=== PATIENT | female | born 1945 ===

== ENCOUNTER 2017-05-22 09:04 | Day surgery (SDC) | payer MEDICARE, MEDICAID ==
[2017-05-17 11:44] VITALS: BMI 28.0
[2017-05-22 09:45] LABS: BASO # 0.03 K/mm3 (0.0-2.0); BASO % 0.4 % (0.0-3.0); EOS # 0.1 (0.0-0.7); EOS % 0.7 % (1.5-5.0); GRAN # 4.88 (1.4-6.5); GRAN % 72.7 % (50.0-68.0); HEMATOCRIT 38.5 % (36.0-48.0); LYMPH # 1.3 (1.2-3.4); LYMPH % 19.9 % (22.0-35.0); MEAN CELL VOLUME 87.1 fl (80.0-105.0); MEAN CORPUSCULAR HEMOGLOBIN 28.5 pg (25.0-35.0); MEAN CORPUSCULAR HGB CONC 32.7 g/dl (31.0-37.0); MEAN PLATELET VOLUME 10.7 fl (7.0-11.0); MONO # 0.4 (0.1-0.6); MONO % 6.3 % (1.0-6.0); RED CELL DISTRIBUTION WIDTH 14.1 % (11.5-14.5); WHITE BLOOD COUNT 6.7 10^3/ul (4.5-11.0)
[2017-05-22 09:54] LABS: BLOOD UREA NITROGEN 15 mg/dL (7-21); CALCIUM 9.2 mg/dL (8.4-10.5); CARBON DIOXIDE 28 mmol/L (21-33); CHLORIDE 100 mmol/L (98-107); GFR AFRICAN-AMERICAN > 60; GLUCOSE,RANDOM 141 mg/dL (70-110); POTASSIUM 3.8 mmol/L (3.6-5.0); SODIUM 139 mmol/L (132-148)
[2017-05-22 09:59] LABS: INR 0.94 (0.93-1.08); PARTIAL THROMBOPLASTIN TIME 27.3 Seconds (23.7-30.8)
[2017-05-22] MEDS ORDERED: Midazolam 2 MG/2 ML VIAL ONE ×2 (15:40→16:32)
[2017-05-22] MEDS ORDERED: Adenosine 90 mg/30mL IV ONE ×2 (15:40→15:43)
[2017-05-22] MEDS ORDERED: Iodixanol 320 MG/ML 100 ML BOTTLE IV ONE (15:41)
[2017-05-22] MEDS ORDERED: Nitroglycerin 50mg in D5W 50 MG/250 ML BOTTLE IV ONE (15:41)
[2017-05-22] MEDS ORDERED: Iodixanol 320 MG/ML 200 ML BOTTLE IV ONE (15:41)
[2017-05-22] MEDS ORDERED: Iohexol 350mgl/ml 50 ML ONE (15:41)
[2017-05-22] MEDS ORDERED: Lidocaine 2% Inj (20ml) ONE ×2 (16:28→16:49)
[2017-05-22] MEDS ORDERED: DiphenhydrAMINE 50 mg/ml Inj ONE (16:35)
[2017-05-22] MEDS ORDERED: Iodixanol 320 mg/ml 150 ml Bottle IV ONE (17:22)
[2017-05-22] MEDS: Sodium Chloride 0.9% 1,000 ML IV SCH ×2 (19:09→21:21)
--- NOTE | 2017-05-22 19:37 | CARDCATH ---
PROCEDURE DATE: 05/22/2017 INDICATIONS: Ms. Mary Villa is a 71-year-old female who was recently admitted to [facility] for an episode of chest pain. She had multiple cardiovascular risk factors for which she had undergone a nuclear stress test showing ischemia on the lateral wall for which she underwent a diagnostic cardiac catheterization at [facility] identifying severe akhiok left circumflex disease and moderate LAD and RCA disease. She was therefore brought to [facility] for stage intervention of the obtuse marginal branch and further evaluation of the left anterior descending artery with FFR. PROCEDURES PERFORMED: PTCA stenting of obtuse marginal branch with the use of 2.5 x 22 mm drug-eluting stent. Lesion reduction from 80% down to less then 0% KAM-3 flow. A 6-Liberian left femoral arterial access. FFR of left anterior descending artery, which was physiologically significant, 0.72 FFR of left circumflex coronary artery which was physiologically nonsignificant at 0.84. TECHNIQUES AND INTERVENTION: After obtaining informed consent, the patient was brought to the cardiac cath suite in post-absorptive non-sedated state. The patient was prepped and draped in the usual sterile fashion. A 2% lidocaine was used for infiltration of anesthesia, using modified Seldinger technique, 6-Liberian sheath was introduced into the right radial artery. Subsequently over a J-wire, a EBU 3.5 guiding catheter was introduced to engage the left coronary system. Subsequently, angiogram was obtained and FFR wire was used to negotiate into the left anterior descending artery. FFR of the left anterior descending artery was noted at baseline to be 0.72, therefore, no adenosine was injected. At this point, as per planning, the wire was then negotiated into the obtuse marginal branch because of tortuosity of second wire was adopting the obtuse marginal branch. The lesion was predilated with a 2.0 mm balloon and subsequently was stented with a 2.5 x 22 resolute drug-eluting stent. Subsequently, the lesion was post-dilated with a 2.75 noncompliant balloon. At this point, at the bifurcation of the OM was noted to have small pinching for which FFR wire was introduced again to make sure that it is not physiologically significant. The FFR was noted to be 0.84, which was physiologically nonsignificant. IMPRESSION: Successful PTCA stenting of obtuse marginal branch with the use of 2.5 x 22 mm resolute drug-eluting stent. FFR of left anterior descending artery showing physiologically significant lesion. RECOMMENDATIONS: The patient should be kept on dual antiplatelet therapy, keep the patient on guideline-directed medical therapy for coronary artery disease, on aspirin, Plavix, beta-blockers, statin, nitrates, and Tariq inhibitors. The patient is to be brought back with staged intervention of the left anterior descending artery in one to two weeks' time. The patient will follow with Dr. Bravo Pritchard at the [place] office. Bravo Pritchard MD
[2017-05-22] MEDS ORDERED: Bacitracin 500 Units/gm Oint Foilpak UD ONE (19:55)
[2017-05-22] MEDS ORDERED: A C T ELECTRONICS XX ONE ×2 (19:56→23:16)
--- NOTE | 2017-05-22 21:30 | CP.PCM.PN ---
Subjective - Date & Time of Evaluation Date of Evaluation: 05/22/17 Time of Evaluation: 21:24 - Subjective Subjective: Responded to RAPID RESPONSE announce. Patient felt dizzy, hot, had some pain at procedure site. Denied chest pain , sob. BP went down from 200/90 in the labor training manager to 100/38 . Catheter was removed and manual pressure was applied. Heart rate went down to 50 per minute. Bolus of normal saline was given. Atropine 0.5 mg IV was given. This 71 year old woman is S/P PTCA. Has PMH of HTN,CVA, CAD, HLD, arthritis, cholecystectomy, tonsillectomy. Objective - Vital Signs/Intake and Output Vital Signs (last 24 hours): Temp Pulse Resp BP Pulse Ox 98.9 F 94 H 20 200/90 H 98 05/22/17 10:07 05/22/17 10:07 05/22/17 10:07 05/22/17 17:54 05/22/17 10:07 - Medications Medications: Current Medications Aspirin (Aspirin Chewable) 81 mg PO DAILY [facility] Clopidogrel Bisulfate (Plavix) 75 mg PO DAILY [facility] Hydralazine HCl (Apresoline) 10 mg IVP Q6 PRN PRN Reason: SBP >160 or DBP >110 Hydralazine HCl (Apresoline) 100 mg PO TID [facility] Sodium Chloride (Sodium Chloride 0.9%) 1,000 mls @ 100 mls/hr IV .Q10H [facility] Last Admin: 05/22/17 19:09 Dose: 100 mls/hr Losartan Potassium (Cozaar) 25 mg PO DAILY [facility] Metoprolol Succinate (Toprol Xl) 50 mg PO DAILY [facility] - Labs Labs: 05/22/17 09:40 05/22/17 09:40 PT 10.1 Seconds (9.9-11.8) 05/22/17 09:40 INR 0.94 (0.93-1.08) 05/22/17 09:40 APTT 27.3 Seconds (23.7-30.8) 05/22/17 09:40 - Constitutional Appears: Well, No Acute Distress - Head Exam Head Exam: ATRAUMATIC, NORMAL INSPECTION, NORMOCEPHALIC - Eye Exam Eye Exam: Normal appearance - ENT Exam ENT Exam: Normal External Ear Exam - Neck Exam Neck Exam: Normal Inspection - Respiratory Exam Respiratory Exam: NORMAL BREATHING PATTERN - Cardiovascular Exam Cardiovascular Exam: REGULAR RHYTHM. absent: JVD - GI/Abdominal Exam GI & Abdominal Exam: absent: Distended - Rectal Exam Rectal Exam: Deferred - Exam Additional comments: Deferred. - Extremities Exam Extremities Exam: Normal Inspection Additional comments: Left groin: No hematoma. - Back Exam Back Exam: NORMAL INSPECTION - Neurological Exam Neurological Exam: Alert, Oriented x3 - Psychiatric Exam Psychiatric exam: Normal Affect, Normal Mood - Skin Skin Exam: Normal Color Assessment and Plan - Assessment and Plan (Free Text) Assessment: Sinus bradycardia. Dizziness. S/P PTCA. Vaso vagal effect. HTN. CAD. HLD. Arthritis. Plan: Normal saline bolus given. Atropine 0.5 mg IV given. Manual pressure at procedure site give. Discussed with .
[2017-05-22 21:54] LABS: BASO # 0.02 K/mm3 (0.0-2.0); BASO % 0.2 % (0.0-3.0); EOS % 0.4 % (1.5-5.0); GRAN # 6.71 (1.4-6.5); GRAN % 73.6 % (50.0-68.0); HEMATOCRIT 35.9 % (36.0-48.0); LYMPH # 1.7 (1.2-3.4); LYMPH % 19.1 % (22.0-35.0); MEAN CELL VOLUME 87.3 fl (80.0-105.0); MEAN PLATELET VOLUME 10.7 fl (7.0-11.0); MONO # 0.6 (0.1-0.6); MONO % 6.7 % (1.0-6.0); RED CELL DISTRIBUTION WIDTH 14.1 % (11.5-14.5); WHITE BLOOD COUNT 9.1 10^3/ul (4.5-11.0)
[2017-05-23 03:52] VITALS: RESP 20
[2017-05-23] MEDS: Sodium Chloride 0.9% 1,000 ML IV SCH ×2 (05:23→07:45)
[2017-05-23 06:03] VITALS: TEMP 98.5; O2SAT 98
[2017-05-23 07:18] LABS: URINE BILIRUBIN NEGATIVE (NEGATIVE); URINE BLOOD NEGATIVE (NEGATIVE); URINE GLUCOSE (UA) NEGATIVE (NEGATIVE); URINE KETONE NEGATIVE (NEGATIVE); URINE LEUKOCYTE ESTERASE NEGATIVE Leu/uL (NEGATIVE); URINE PROTEIN TRACE mg/dL (<30 mg/dL); URINE UROBILINOGEN 0.2 E.U./dL (<1 E.U./dL)
[2017-05-23 07:20] LABS: URINE APPEARANCE CLEAR (CLEAR); URINE COLOR YELLOW (YELLOW)
[2017-05-23 07:31] LABS: BASO # 0.02 K/mm3 (0.0-2.0); BASO % 0.3 % (0.0-3.0); EOS # 0.1 (0.0-0.7); EOS % 0.6 % (1.5-5.0); GRAN # 5.39 (1.4-6.5); GRAN % 69.9 % (50.0-68.0); HEMATOCRIT 35.1 % (36.0-48.0); LYMPH # 1.7 (1.2-3.4); LYMPH % 21.7 % (22.0-35.0); MEAN CELL VOLUME 87.5 fl (80.0-105.0); MEAN CORPUSCULAR HEMOGLOBIN 28.2 pg (25.0-35.0); MEAN CORPUSCULAR HGB CONC 32.2 g/dl (31.0-37.0); MEAN PLATELET VOLUME 10.9 fl (7.0-11.0); MONO # 0.6 (0.1-0.6); MONO % 7.5 % (1.0-6.0); RED CELL DISTRIBUTION WIDTH 14.1 % (11.5-14.5); WHITE BLOOD COUNT 7.7 10^3/ul (4.5-11.0)
[2017-05-23 07:38] LABS: ALB/GLOB RATIO 1.1 (1.1-1.8); ALKALINE PHOSPHATASE 73 U/L (38-126); ALT/SGPT 32 U/L (7-56); AST/SGOT 24 U/L (14-36); BILIRUBIN,TOTAL 0.8 mg/dL (0.2-1.3); BLOOD UREA NITROGEN 11 mg/dL (7-21); CALCIUM 8.1 mg/dL (8.4-10.5); CARBON DIOXIDE 28 mmol/L (21-33); CHLORIDE 104 mmol/L (98-107); CHOLESTEROL 159 mg/dL (130-200); GFR AFRICAN-AMERICAN > 60; GLUCOSE,RANDOM 115 mg/dL (70-110); PHOSPHOROUS 3.8 mg/dL (2.5-4.5); POTASSIUM 3.3 mmol/L (3.6-5.0); SODIUM 139 mmol/L (132-148); TOTAL PROTEIN 6.3 g/dL (5.8-8.3)
[2017-05-23 07:49] LABS: URINE RBC NEGATIVE /hpf (0-2); URINE WBC NEGATIVE /hpf (0-6)
[2017-05-23 07:49] LABS: TROPONIN I 0.09 ng/mL
[2017-05-23] MEDS ORDERED: Potassium Chloride 20 mEq ER Tab PO ONE (08:39)
[2017-05-23 09:14] VITALS: BP 163/65
[2017-05-23] MEDS ORDERED: Non Formulary Medication (Hydralazine Hcl [Hydralazine Hcl] 100 MG) PO SCH (10:00)
[2017-05-23] MEDS ORDERED: Metoprolol Succinate 50 mg XL Tab PO SCH (10:00)
[2017-05-23 11:16] VITALS: PULSE 64
--- NOTE | 2017-05-23 11:37 | CP.PCM.PN ---
<LONA TOM - Last Filed: 05/23/17 11:29> Subjective - Date & Time of Evaluation Date of Evaluation: 05/23/17 Time of Evaluation: 06:30 - Subjective Subjective: Lona Tom DO PGY1 - Cardiology Progress Note for Dr. Pritchard Patient seen and examined at bedside. Overnight, SCROLL MACHINE OPERATOR called on pt for bradycardia and relative hypotension when femoral sheath was pulled and pressure applied. Patient received 500ml NS bolus and 0.5mg Atropine, with improvement in her symptoms and VS. No bleeding noted, no change in her labs. Likely vasovagal event. Nurse also reports that patient was unable to urinate overnight, and hudson catheter was placed, which drained approximately 1L of urine. Today, patient feels much better, with no particular complaints. She was seen reclining in bed. She denies any CP, SOB, palpitations, diaphoresis, abdominal pain. She has some mild groin pain and tenderness. Objective - Vital Signs/Intake and Output Vital Signs (last 24 hours): Temp Pulse Resp BP Pulse Ox 98.5 F 64 20 163/65 H 98 05/23/17 06:00 05/23/17 10:00 05/23/17 06:00 05/23/17 09:12 05/23/17 06:00 Intake and Output: 05/23/17 05/23/17 06:59 18:59 Intake Total 1460 Output Total 1250 Balance 210 - Medications Medications: Current Medications Aspirin (Aspirin Chewable) 81 mg PO DAILY [facility] Last Admin: 05/23/17 09:12 Dose: 81 mg Clopidogrel Bisulfate (Plavix) 75 mg PO DAILY [facility] Last Admin: 05/23/17 09:11 Dose: 75 mg Hydralazine HCl (Apresoline) 10 mg IVP Q6 PRN PRN Reason: SBP >160 or DBP >110 Last Admin: 05/23/17 06:16 Dose: 10 mg Hydralazine HCl (Apresoline) 100 mg PO TID [facility] Last Admin: 05/23/17 09:12 Dose: 100 mg Sodium Chloride (Sodium Chloride 0.9%) 1,000 mls @ 100 mls/hr IV .Q10H [facility] Last Admin: 05/23/17 07:45 Dose: 100 mls/hr Losartan Potassium (Cozaar) 25 mg PO DAILY [facility] Last Admin: 05/23/17 09:11 Dose: 25 mg Metoprolol Succinate (Toprol Xl) 50 mg PO DAILY [facility] Last Admin: 05/23/17 09:12 Dose: 50 mg - Labs Labs: 05/23/17 07:00 05/23/17 07:00 PT 10.1 Seconds (9.9-11.8) 05/22/17 09:40 INR 0.94 (0.93-1.08) 05/22/17 09:40 APTT 27.3 Seconds (23.7-30.8) 05/22/17 09:40 - Constitutional Appears: Non-toxic, No Acute Distress - Head Exam Head Exam: ATRAUMATIC, NORMOCEPHALIC - Eye Exam Eye Exam: EOMI, Normal appearance - ENT Exam ENT Exam: Mucous Membranes Moist - Neck Exam Neck Exam: Full ROM, Normal Inspection - Respiratory Exam Respiratory Exam: Clear to Ausculation Bilateral. absent: Rales, Rhonchi, Wheezes - Cardiovascular Exam Cardiovascular Exam: RRR, +S1, +S2 - GI/Abdominal Exam GI & Abdominal Exam: Soft. absent: Tenderness - Extremities Exam Extremities Exam: Normal Capillary Refill, Normal Inspection. absent: Calf Tenderness, Pedal Edema Additional comments: Pedal pulses palpable bilaterally R groin puncture site clean, dry, intact, no hematoma, no bruit, mild tenderness L groin small firm hematoma, unchanged from prior exam - Neurological Exam Neurological Exam: Alert, Awake, Oriented x3 - Psychiatric Exam Psychiatric exam: Normal Affect, Normal Mood - Skin Skin Exam: Dry, Intact Assessment and Plan - Assessment and Plan (Free Text) Assessment: 71 yo F with known CAD, s/p PCI Plan: 1. CAD s/p PCI - Patient underwent PTCA stenting of obtuse marginal branch with 2.5x22mm resolute RUSSELL; FFR of LAD showed phyiologically significant lesion - Patient tolerated procedure well, had vasovagal episode last night, otherwise , no complications - Troponin negative yesterday, slightly elevated today, though expected post- cath - Currently denies any chest pain or palpitations - Patient should return in 1-2 weeks for LAD stenting - Meanwhile, continue ASA, plavix, statin, BB, ARB 2. HTN - Patient hypertensive thoughout procedure yesterday - Now improved on home meds - Continue current regimen 3. Urinary retention - Patient noted to have significant volume retained urine overnight; hudson catheter placed and drained appropriately - Patient has had this problem in the past; has history of bladder surgery for bladder prolapse - Hudson catheter to be removed this AM - Patient instructed to sit up and ambulate, and attempt to urinate - Patient may be discharged if retention is resolved Patient seen, discussed, and reviewed with attending <Bravo Pritchard - Last Filed: 05/23/17 18:58> Objective - Vital Signs/Intake and Output Vital Signs (last 24 hours): Temp Pulse Resp BP Pulse Ox 98.5 F 64 20 163/65 H 98 05/23/17 06:00 05/23/17 10:00 05/23/17 06:00 05/23/17 09:12 05/23/17 06:00 Intake and Output: 05/23/17 05/23/17 06:59 18:59 Intake Total 1460 Output Total 1250 Balance 210 - Labs Labs: 05/23/17 07:00 05/23/17 07:00 PT 10.1 Seconds (9.9-11.8) 05/22/17 09:40 INR 0.94 (0.93-1.08) 05/22/17 09:40 APTT 27.3 Seconds (23.7-30.8) 05/22/17 09:40 Attending/Attestation - Attestation I have personally seen and examined this patient.: No I have fully participated in the care of the patient.: Yes I have reviewed all pertinent clinical information, including history, physical exam and plan: Yes
== END 2017-05-23 13:51 | disposition home or self-care (01) ==
LOC: CATH 09:04 → 2RSO 18:36 → CATH 05-23 13:51
PROVIDERS: ATTEND Internal Medicine Interventional Cardiology
DX: I25.10 Atherosclerotic heart disease of native coronary artery without angina pectoris (principal); I95.9 Hypotension, unspecified; R33.9 Retention of urine, unspecified; R00.1 Bradycardia, unspecified; R42 Dizziness and giddiness; E78.5 Hyperlipidemia, unspecified; I10 Essential (primary) hypertension; Z86.73 Personal history of transient ischemic attack (TIA), and cerebral infarction without residual deficits
CPT/HCPCS: 36415 ×2; 80048; 80053; 80061; 81001; 82948; 83735; 84100; 84484 ×2; 85025 ×2; 85175; 85610; 85730; 86850; 86900; 87086; 93571; 93572; 99152; 99153; C1725 ×2; C1769 ×3; C1874; C1887; C1894; C9600; J0153; J0360 ×2; J1200; J1644 ×2; J2250; J3010; J7040 ×3; Q9967 ×2

== ENCOUNTER 2018-10-17 08:47 | Day surgery (SDC) | payer MEDICARE, MEDICAID ==
[2018-10-15 14:06] VITALS: BMI 26.2
[2018-10-17 09:21] LABS: BASO # 0.01 K/mm3 (0.0-2.0); BASO % 0.1 % (0.0-3.0); EOS % 0.4 % (1.5-5.0); HEMOGLOBIN 11.8 g/dL (12.0-16.0); LYMPH # 1.1 (1.2-3.4); LYMPH % 13.5 % (22.0-35.0); MEAN CELL VOLUME 89.2 fl (80.0-105.0); MEAN CORPUSCULAR HEMOGLOBIN 28.4 pg (25.0-35.0); MEAN CORPUSCULAR HGB CONC 31.9 g/dl (31.0-37.0); MONO # 0.3 (0.1-0.6); MONO % 4.2 % (1.0-6.0); RBC 4.15 10^6/uL (3.5-6.1); RED CELL DISTRIBUTION WIDTH 14.2 % (11.5-14.5); WHITE BLOOD COUNT 7.9 10^3/uL (4.5-11.0)
[2018-10-17 09:27] LABS: INR 0.98; PARTIAL THROMBOPLASTIN TIME 33.8 Seconds (26.9-38.3); PROTHROMBIN TIME 11.1 SECONDS (9.4-12.5)
[2018-10-17 09:33] LABS: BLOOD UREA NITROGEN 13 mg/dL (7-21); CALCIUM 9.6 mg/dL (8.4-10.5); GFR NON-AFRICAN AMERICAN > 60
[2018-10-17] MEDS ORDERED: Adenosine 90 mg/30mL IV ONE (09:55)
[2018-10-17] MEDS ORDERED: Phenylephrine 10 mg/ml Inj ONE (09:55)
[2018-10-17] MEDS ORDERED: Iodixanol 320 MG/ML 200 ML BOTTLE IV ONE (09:56)
[2018-10-17] MEDS ORDERED: Iohexol 350mgl/ml 50 ML ONE (09:56)
[2018-10-17] MEDS ORDERED: Heparin 2,000 ML IV ONE (09:56)
[2018-10-17] MEDS ORDERED: Iodixanol 320 MG/ML 100 ML BOTTLE IV ONE ×2 (09:56→13:15)
[2018-10-17] MEDS ORDERED: Nitroglycerin 50mg in D5W 50 MG/250 ML BOTTLE IV ONE (09:56)
[2018-10-17] MEDS ORDERED: Lidocaine 2% Inj (20ml) ONE (09:58)
[2018-10-17] MEDS ORDERED: Lidocaine PF 2% (5 ml) Inj (For Cardiac Arrhy) ONE (10:05)
[2018-10-17] MEDS ORDERED: Verapamil 2 ML ONE (11:34)
[2018-10-17] MEDS ORDERED: Midazolam 2 MG/2 ML VIAL ONE ×3 (11:34→12:15)
[2018-10-17] MEDS ORDERED: DiphenhydrAMINE 50 mg/ml Inj ONE (12:11)
[2018-10-17] MEDS: Sodium Chloride 0.9% 1,000 ML IV SCH ×2 (14:19→21:03)
--- NOTE | 2018-10-17 16:01 | PCM.RRT ---
<Tano Walsh - Last Filed: 10/17/18 15:54> DRY WALL FINISHER Nurse Assessment - Situation Date: 10/17/18 Time DRY WALL FINISHER was called: 15:39 DRY WALL FINISHER Responder Arrival Time: 15:41 DRY WALL FINISHER Location:: [address] [place] [address] DRY WALL FINISHER Reason for Call: Bradycardia DRY WALL FINISHER Called By: RN I.Reason for DRY WALL FINISHER - A) Acute Change in Patient: (Select all that apply): Acute change in heart rate less than 50 or greater than 120 Subjective: DRY WALL FINISHER note Patient is s/p LHC with lumber puller Dr. Pritchard. Patient was being cared for at bedside by nursing staff. Femoral sheath was being removed when patient was noted to become bradycardic with heart rate of 40-45 NSR and hypotension. Patient was placed in trendelenburg position, placement of transcutaneous pacers and given IVF wide open. Upon entering room patient was noted to have heart rate of 55-60 NSR with hypotension and MAP >65mmHg. Patient was noted to be AAOx3, without complaints of chest pain, shortness of breath, abdominal pain, nausea. Patient reported pain at left groin associated with pressure s/p femoral sheath removal. - Neurological Status (Select all that apply): Alert, Responsive, Oriented, Verbal, Follows Commands - Constitutional Appears: Non-toxic - Head Head Exam: ATRAUMATIC, NORMOCEPHALIC - Eyes Eye Exam: EOMI, PERRL - Respiratory Exam Respiratory Exam: Clear to Ausculation Bilateral, NORMAL BREATHING PATTERN - Cardiovascular Exam Cardiovascular Exam: REGULAR RHYTHM, +S1, +S2 - GI/Abdominal Exam GI & Abdominal Exam: Soft, Normal Bowel Sounds. absent: Tenderness - Neurological Exam Neurological Exam: Alert, Awake, Oriented x3 Additional exam: motor and sensory grossly intact - Extremities Exam Extremities Exam: Full ROM. absent: Joint Swelling, Pedal Edema Additional comments: doppler pulses bilaterally lower extremities Plan - Assessment of Findings&Treatment Plan Bradycardia -Patient s/p femoral sheath removal -Heart rate noted to be 55-60 NSR at time of arrival for DRY WALL FINISHER -IVF NS bolus 1 Liter -Check Mg, Phos, BMP -Abdominal/Pelvis CT w/o contrast stat -Cardiology with Dr. Pritchard contacted and updated on clinical course <Jenna Sultana - Last Filed: 10/19/18 11:50> DRY WALL FINISHER Nurse Assessment - Vital Signs Vital Sign: Rapid Response Vital Sign Blood Pressure 60/47 Pulse Rate 45 Respiratory Rate 24 Temperature 98.5 F Oxygen Saturation 98 - Vital Signs at end of DRY WALL FINISHER Vital Signs at end of DRY WALL FINISHER: Rapid Response End Vital Sign Blood Pressure 129/78 Pulse Rate 88 Respiratory Rate 18 Temperature 98.2 F O2 Sat by Pulse Oximetry 98 Attending/Attestation - Attestation I have personally seen and examined this patient.: Yes I have fully participated in the care of the patient.: Yes I have reviewed all pertinent clinical information, including history, physical exam and plan: Yes Notes (Text): 10/19/18 11:48 Attending note; Patient seen and examined with resident during rapid response. Patient had a brief episode of hypotension and bradycardia. Status post cardiac cath today. The nurse pulled out the sheath. Immediately after that patient had brief Bradycardia. Currently resolved. Started on IV fluids. No groin hematoma noted. No active bleeding noted. Vitals stable. Case discussed with cardiology Dr. Oneil in detail. CT abdomen pelvis showed no hematoma. BMP showed hypokalemia. Potassium supplemented. Magnesium level is normal. Patient is stable. Further plan per PMD.
[2018-10-17 16:35] LABS: BLOOD UREA NITROGEN 11 mg/dL (7-21); CALCIUM 8.6 mg/dL (8.4-10.5); GFR NON-AFRICAN AMERICAN > 60
--- NOTE | 2018-10-17 17:29 | CT ---
Date of service: 10/17/2018 PROCEDURE: CT Abdomen and Pelvis without intravenous contrast HISTORY: s/p cath, concern for possible hematoma/retroperit COMPARISON: None. TECHNIQUE: Unenhanced. Neither IV nor oral contrast administered Radiation dose: Total exam DLP = 861.28 mGy-cm. This CT exam was performed using one or more of the following dose reduction techniques: Automated exposure control, adjustment of the mA and/or kV according to patient size, and/or use of iterative reconstruction technique. FINDINGS: LOWER THORAX: Trace bilateral pleural effusions are present. LIVER: Unremarkable. No gross lesion or ductal dilatation. GALLBLADDER AND BILE DUCTS: Not visible, presumed prior cholecystectomy. PANCREAS: Unremarkable. No gross lesion or ductal dilatation. SPLEEN: Unremarkable. ADRENALS: Unremarkable. No mass. KIDNEYS AND URETERS: Unremarkable. No hydronephrosis. No solid mass. Contrast from prior catheterization fills the collecting systems and ureters. No filling defects identified. VASCULATURE: Unremarkable. No aortic aneurysm. Atherosclerotic calcification and mural plaque present. Findings are seen throughout the aorta and iliac arteries. BOWEL: Unremarkable. No obstruction. No gross mural thickening. APPENDIX: A normal appendix is visualized in it's entirety. PERITONEUM: Unremarkable. No free fluid. No free air. LYMPH NODES: Unremarkable. No enlarged lymph nodes. BLADDER: Unremarkable. Incidental note made of contrast in the urinary bladder related to recent cardiac catheterization. REPRODUCTIVE: Cystic mass in the pelvis likely originating from the left adnexa 4 x 7.1 cm. Elective ultrasound recommended for further evaluation. BONES: No acute fracture. OTHER FINDINGS: Postprocedural changes left inguinal region consistent with recent cardiac catheterization. These do not extend into the true pelvis. IMPRESSION: No evidence of pelvic, intra-abdominal or retroperitoneal hemorrhage/hematoma following cardiac catheterization. Postprocedural findings noted in the left inguinal region. Cystic mass likely originating from the left adnexa. Ultrasound recommended for further evaluation. Additional benign and/or incidental findings described above.
--- NOTE | 2018-10-17 19:45 | CARDCATH ---
PROCEDURE DATE: 10/17/2018 INDICATIONS: MS. Villa is a pleasant 73-year-old female, who has history of hypertension, diabetes, CAD, status post stenting of obtuse marginal branch, underwent a nuclear stress test for evaluation of symptoms of unstable angina and therefore was brought to the chemistry laboratory technician for further evaluation and treatment of unstable angina along with abnormal stress test. PROCEDURES PERFORMED: Left heart catheterization with selective left and right coronary angiogram, left ventriculogram, FFR of left anterior descending artery physiologically significant at 0.76, PTCA of 100% occluded GREENSMAN OM stent with use of 2.0 x 20 balloon, regeneration of 100% down to 0% KAM-3 flow, PTCA stenting of mid left circumflex coronary artery with deployment of 2.75 x 26 mm Sixt[place] drug eluting stent, regeneration from 80% down to 0% KAM-3 flow, FFR of left circumflex coronary artery physiologically significant at 0.65, a 6-Kiswahili left femoral access, manual pressure for hemostasis. TECHNIQUES OF PROCEDURE: After obtaining informed consent, the patient was brought to the cardiac cath suite in post-absorptive and non-sedated state. The patient was prepped and draped in the usual sterile fashion. A 2% lidocaine was used for infiltration of anesthesia. Using modified Seldinger technique, a 6-Kiswahili sheath was introduced into the left femoral artery. A left radial coronary angiogram was performed subsequently where JL4 and JR4 diagnostic catheters were used to engage the right coronary system. Angiograms were obtained in different orthogonal views. Subsequently, LV gram was obtained in the BARROSO view. ANGIOGRAPHIC FINDINGS: Left main is a large-sized vessel, bifurcates into left anterior descending and left circumflex coronary artery. Left anterior descending artery is a large-sized vessel, has proximal to mid heavily calcific 70% stenosis, gives out to two medial sized diagonal branches. Left circumflex runs in the groove, gives off a large-sized obtuse marginal branch which has an old stent which is 100% occluded with chronic total occlusion of the left to left collaterals and the bifurcation of the circumflex into OM with high-grade 80% stenosis. RCA is a small-sized vessel, has approximately 55% stenosis, left dominant circulation, ejection fraction is about 50% to 55%. TECHNICAL INTERVENTION: After reviewing the above angiographic findings, we decided to proceed with the possible FFR interrogation of LAD. FFR of the LAD was done which was physiologically significant at 0.76. Subsequently, FFR of left circumflex was done which was physiologically significant at 0.67. At this point, the procedure was halted and a CT Surgery consultation over the phone with Dr. Charles Millan was obtained. Considering the patient's fairly advanced age and reluctance for surgery in the past, it was decided to proceed with the possible hybrid approach. Discussing with the CT surgeon and a heart team approach, we decided to proceed with the revascularization of the left circumflex and OM system via percutaneous approach. At this point, a wire was negotiated through the occluded GREENSMAN into the obtuse marginal branches and subsequently, whisper wire was negotiated into the left circumflex. The OM was predilated with 2.0 x 20 balloon with moravian of fluid to the distal one. Subsequently, the circumflex was predilated with the 2.0 x 25 noncompliant balloon and subsequently 2.75 x 23 mm [place] drug-eluting stent was deployed to the circumflex. Subsequently, wires were retrieved and re-wired into the side branch of OM and a balloon angioplasty with 2.0 compliant balloon. Final angiograms done which showed lesion reduction was down to 0% and KAM-3 flow into the circumflex obtuse marginal system. IMPRESSION: Successful revascularization of the left circumflex obtuse marginal system with a percutaneous transluminal coronary angioplasty of complete total occlusion of obtuse marginal in-stent restenosis, stenting of the left circumflex high-grade stenosis, deployment of 2.75 x 26 [place] drug-eluting stent. RECOMMENDATIONS: The patient is to be observed for six hours. Keep the patient on dual-antiplatelet therapy. The patient can be discharged home and subsequently follow with Dr. Charles Millan for minimally invasive LOGAN to LAD. Bravo Pritchard MD
[2018-10-17] MEDS ORDERED: Potassium Chloride 20 mEq ER Tab PO STA (20:32)
--- NOTE | 2018-10-17 23:59 | CARD ---
APPROVED REPORT Date of service: 10/17/2018 EKG Measurement Heart [id number] <Conclusion> Normal sinus rhythm Anterior infarct, age undetermined Abnormal ECG
[2018-10-18] MEDS: Sodium Chloride 0.9% 1,000 ML IV SCH (00:43)
[2018-10-18 06:06] VITALS: O2SAT 100
[2018-10-18 12:54] VITALS: BP 140/56; PULSE 69; RESP 18; TEMP 98.3
== END 2018-10-18 14:04 | disposition home or self-care (01) ==
LOC: CATH 08:47 → 2RSO 13:45 → CATH 10-18 14:04
PROVIDERS: ATTEND Internal Medicine Interventional Cardiology
DX: T82.855A Stenosis of coronary artery stent, initial encounter (principal); I25.10 Atherosclerotic heart disease of native coronary artery without angina pectoris; I25.82 Chronic total occlusion of coronary artery; I95.81 Postprocedural hypotension; I97.89 Other postprocedural complications and disorders of the circulatory system, not elsewhere classified; Y83.8 Other surgical procedures as the cause of abnormal reaction of the patient, or of later complication, without mention of misadventure at the time of the procedure; E87.6 Hypokalemia; I10 Essential (primary) hypertension; E11.9 Type 2 diabetes mellitus without complications; Z79.84 Long term (current) use of oral hypoglycemic drugs
CPT/HCPCS: 36415; 74176; 80048; 82948; 83036; 83735; 84100; 85025; 85175; 85610; 85730; 86850; 86900; 93005; 93458; 93571; 99152; 99153; C1725 ×6; C1769 ×4; C1874; C1887; C1894; C2629; C9600; J0153; J1200; J1644 ×2; J2250; J3010; J7030; Q9966; Q9967 ×2

== ENCOUNTER 2018-10-22 09:07 | Emergency (ER) | payer MEDICARE, MEDICAID ==
[2018-10-22 09:31] VITALS: TEMP 97.7; O2SAT 100; BMI 27.7
[2018-10-22] MEDS ORDERED: Oxycodone/Acetaminophen 5/325 mg Tab PO STA (09:51)
--- NOTE | 2018-10-22 10:37 | ED PDOC ---
Arrival/HPI - General Chief Complaint: Groin Pain Time Seen by Provider: 10/22/18 09:38 Historian: Patient - History of Present Illness Narrative History of Present Illness (Text): 10/22/18 10:33 73yo female with pmhx of hypertension, Diabetes, CVA s/p 2stents recently present with family members for left groin pain s/p cauterization 4days ago to the groin area. The grandson by the left sided notes pain and discoloration to the area. States he spoke with somebody in the hospital who advised him to bring patient to ED for imaging. states catherization was done here in [place]. Otherwise denies fever, chills, chest pain, SOB, diaphoresis, nausea, vomiting, any other complaint. Past Medical History - Provider Review Nursing Documentation Reviewed: Yes - Infectious Disease Hx of Infectious Diseases: None - Cardiac Hx Cardiac Disorders: Yes Hx Cardiac Arrhythmia: Yes Hx Hypertension: Yes Hx Pacemaker: No - Neurological HX Cerebrovascular Accident: Yes (x4) Hx Paralysis: No - Endocrine/Metabolic Hx Endocrine Disorders: Yes Hx Diabetes Mellitus Type 1: Yes - Hematological/Oncological Hx Blood Transfusions: No - Musculoskeletal/Rheumatological Hx Musculoskeletal Disorders: Yes - Psychiatric Hx Emotional Abuse: No Hx Physical Abuse: No Hx Substance Use: No - Surgical History Hx Cardiac Catheterization: Yes - Anesthesia Hx Anesthesia Reactions: No Hx Malignant Hyperthermia: No - Suicidal Assessment Feels Threatened In Home Enviroment: No Family/Social History - Physician Review Nursing Documentation Reviewed: Yes Family/Social History: Unknown Family HX Smoking Status: Never Smoked Hx Alcohol Use: No Hx Substance Use: No Allergies/Home Meds Allergies/Adverse Reactions: Allergies No Known Allergies Allergy (Verified 01/22/18 10:10) Home Medications: Home Meds Medication Instructions Recorded Confirmed Aspirin 81 mg PO DAILY 01/15/17 10/17/18 Cilostazol [Pletal] 50 mg PO BID 01/15/17 10/17/18 Clopidogrel [Plavix] 75 mg PO DAILY 01/15/17 10/17/18 Linagliptin [Tradjenta] 5 mg PO DAILY 01/15/17 10/17/18 Folic Acid 1 mg PO DAILY 05/07/17 10/17/18 Glimepiride [amaRYL] 2 mg PO DAILY 05/07/17 10/17/18 Ergocalciferol [Drisdol 50,000 50,000 units PO QWK 10/24/17 10/17/18 Intl Units Cap] amLODIPine [Norvasc] 10 mg PO DAILY 10/24/17 10/17/18 Losartan/Hydrochlorothiazide 1 each PO DAILY 08/27/18 10/17/18 [Losartan-Hctz 100-25 mg Tab] Ascorbic Acid [Vitamin C] 1,000 mg PO DAILY 10/16/18 10/17/18 Metoprolol Succinate [Toprol Xl] 50 mg PO DAILY 10/16/18 10/17/18 hydrALAZINE [hydralazine 50 mg PO BID 10/16/18 10/17/18 Hydrochloride] Review of Systems - Physician Review All systems were reviewed & negative as marked: Yes - Review of Systems Constitutional: Normal Eyes: Normal ENT: Normal Respiratory: Normal Cardiovascular: Normal Gastrointestinal: Other (LEft groin pain) Genitourinary Female: Normal Musculoskeletal: Normal Skin: Normal Neurological: Normal Endocrine: Normal Hemo/Lymphatic: Normal Psychiatric: Normal Physical Exam Vital Signs Reviewed: Yes Vital Signs Temp Pulse Resp BP Pulse Ox 10/22/18 09:30 97.7 F 72 18 142/55 L 100 Temperature: Afebrile Blood Pressure: Normal Pulse: Regular Respiratory Rate: Normal Appearance: Positive for: Well-Appearing, Non-Toxic, Comfortable Pain Distress: None Mental Status: Positive for: Alert and Oriented X 3 - Systems Exam Head: Present: Atraumatic, Normocephalic Pupils: Present: PERRL Extroacular Muscles: Present: EOMI Conjunctiva: Present: Normal Mouth: Present: Moist Mucous Membranes Neck: Present: Normal Range of Motion Respiratory/Chest: Present: Clear to Auscultation, Good Air Exchange. No: Respiratory Distress, Accessory Muscle Use Cardiovascular: Present: Regular Rate and Rhythm, Normal S1, S2. No: Murmurs Abdomen: Present: Tenderness (Left groin tenderness with underlaying ecchymosis noted to the area. No warmth. ). No: Distention, Peritoneal Signs Back: Present: Normal Inspection Upper Extremity: Present: Normal Inspection. No: Cyanosis, Edema Lower Extremity: Present: Normal Inspection. No: Edema Neurological: Present: GCS=15, CN II-XII Intact, Speech Normal Skin: Present: Warm, Dry, Normal Color. No: Rashes Psychiatric: Present: Alert, Oriented x 3, Normal Insight, Normal Concentration Medical Decision Making - RAD Interpretation Radiology Orders: 10/22/18 09:49 DUPLEX LOWER EXTRM ARTR LEFT [US] Stat - Medication Orders Current Medication Orders: Discontinued Medications Oxycodone/Acetaminophen (Percocet 5/325 Mg Tab) 1 tab PO STAT STA Stop: 10/22/18 09:52 Last Admin: 10/22/18 09:55 Dose: Not Given Non-Admin Reason: Patient Refused Disposition/Present on Arrival - Present on Arrival Any Indicators Present on Arrival: No History of DVT/PE: No History of Uncontrolled Diabetes: No Urinary Catheter: No History of Decub. 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
[2018-10-22 10:52] VITALS: BP 130/55; PULSE 75; RESP 16
--- NOTE | 2018-10-22 11:17 | US ---
PROCEDURE: Duplex arterial ultrasound of the left groin. HISTORY: Recent cardiac catheterization. Pain and pulsatile mass in the left groin. Evaluate for pseudoaneurysm or fistula. PHYSICIAN(S): Geraldo Acevedo MD. FINDINGS: The left common femoral artery is patent with a normal triphasic waveform. No sonographic evidence of a pseudoaneurysm or AV fistula is seen. The left superficial femoral artery and profunda femoral artery are patent proximally. The visualized venous segments the left groin are patent and compressible. IMPRESSION: 1. No sonographic evidence for pseudoaneurysm or AV fistula in the left groin.
--- NOTE | 2018-10-22 11:34 | CARD ---
APPROVED REPORT Date of service: 10/22/2018 EKG Measurement Heart [id number] <Conclusion> Sinus rhythm with premature atrial complexes Nonspecific ST and T wave abnormality Abnormal ECG
== END 2018-10-22 10:50 | disposition home or self-care (01) ==
LOC: ED 09:07
DX: R10.30 Lower abdominal pain, unspecified (principal); E11.9 Type 2 diabetes mellitus without complications; I10 Essential (primary) hypertension; Z86.73 Personal history of transient ischemic attack (TIA), and cerebral infarction without residual deficits